=== PATIENT | female | born 1985 | race African-American/Black ===

== ENCOUNTER 2019-03-15 18:50 | Emergency (ER) | payer OTHER ==
[2019-03-15 20:26] LABS: WHITE BLOOD COUNT 5.2 10^3/ul (4.8-10.8)
[2019-03-15 20:26] LABS: ADD MAN DIFF? NO; BASOPHILS % 0.6 % (0.0-2.0); EOSINOPHILS # 0.1 10^3/ul (0.0-0.5); EOSINOPHILS % 1.7 % (0.0-7.0); HEMATOCRIT 37.4 % (37.0-47.0); HEMOGLOBIN 12.7 g/dl (12.0-16.0); LYMPHOCYTES # 2.6 10^3/ul (0.8-2.9); LYMPHOCYTES % 49.2 % (15.0-51.0); MEAN CORPUSCULAR VOLUME 97.1 fl (82.0-101.0); MONOCYTE # 0.3 10^3/ul (0.3-0.9); MONOCYTES % 5.7 % (0.0-11.0); NEUTROPHIL # 2.2 10^3/ul (1.6-7.5); NEUTROPHILS % 42.6 % (39.0-77.0); PLATELET COUNT 226 10^3/UL (140-415); RED BLOOD COUNT 3.85 10^6/ul (4.20-5.40); RED CELL DISTRIBUTION WIDTH 12.1 % (11.5-14.5)
[2019-03-15] MEDS: LABETALOL HCL 20MG INJ IV (20:29)
[2019-03-15 20:40] LABS: ANION GAP 5 (5-13); BLOOD UREA NITROGEN 12 mg/dl (7-20); CALCIUM 8.8 mg/dl (8.4-10.2); CARBON DIOXIDE 32 mmol/L (21-31); CHLORIDE 105 mmol/L (97-110); Estimated GFR > 60 mL/min (>60); GLUCOSE 65 mg/dl (70-220); POTASSIUM 3.2 mmol/L (3.5-5.1); SODIUM 142 mmol/L (135-144)
[2019-03-15 20:52] LABS: TROPONIN-I < 0.012 ng/ml (0.000-0.120)
== END 2019-03-15 22:09 | disposition home or self-care (01) ==
LOC: E/R 18:50
DX: I10 Essential (primary) hypertension (principal); R40.2142 Coma scale, eyes open, spontaneous, at arrival to emergency department; R40.2252 Coma scale, best verbal response, oriented, at arrival to emergency department; R40.2362 Coma scale, best motor response, obeys commands, at arrival to emergency department
CPT/HCPCS: 36415; 80048; 81025; 84484; 85025; 93005; 96374; 99284-25

== ENCOUNTER 2019-05-29 02:14 | Emergency (ER) | payer OTHER ==
[2019-05-29] MEDS: LORAZEPAM 1 MG TAB PO (03:27)
== END 2019-05-29 04:30 | disposition home or self-care (01) ==
LOC: FTE 02:14
DX: T20.24XD Burn of second degree of nose (septum), subsequent encounter (principal); F41.9 Anxiety disorder, unspecified; T20.26XD Burn of second degree of forehead and cheek, subsequent encounter; X10.2XXD Contact with fats and cooking oils, subsequent encounter; Y92.009 Unspecified place in unspecified non-institutional (private) residence as the place of occurrence of the external cause
CPT/HCPCS: 81025; 99283